=== PATIENT | male | born 1950 | race Caucasian/White ===

== ENCOUNTER 2020-09-22 05:17 | Day surgery (SDC) | payer MEDICARE, OTHER ==
[2020-09-17 11:36] LABS: BASOPHILS % (AUTO) 0.6 % (0-1); EOSINOPHILS # (AUTO) 0.1 X10'3 (0-0.9); EOSINOPHILS % (AUTO) 2.5 % (0-6); LYMPHOCYTES # (AUTO) 1.9 X10'3 (1.1-4.8); LYMPHOCYTES % (AUTO) 32.2 % (21-51); MEAN CORPUSCULAR HEMOGLOBIN 32.1 PG (27.0-31.0); MEAN CORPUSCULAR HGB CONC 34.1 g/dL (33.0-36.5); MEAN CORPUSCULAR VOLUME 94.4 FL (78-98); MEAN PLATELET VOLUME 9.3 FL (7.4-10.4); MONOCYTES # (AUTO) 0.5 X10'3 (0-0.9); MONOCYTES % (AUTO) 8.1 % (2-12); NEUTROPHILS # (AUTO) 3.3 X10'3 (1.8-7.7); NEUTROPHILS % (AUTO) 56.6 % (42-75); PRE OP HEMATOCRIT 44.8 % (42.0-52.0); PRE OP HEMOGLOBIN 15.3 g/dL (14.0-17.9); PRE OP PLATELET COUNT 221 X10'3 (140-440); RED BLOOD COUNT 4.75 X10'6 (4.70-6.10); RED CELL DISTRIBUTION WIDTH 13.4 % (11.5-14.5)
[2020-09-17 11:52] LABS: ALBUMIN 3.7 G/DL (3.4-5.0); ALBUMIN/GLOBULIN RATIO 1.2 (1.1-1.5); ALKALINE PHOSPHATASE 71 IU/L (46-116); BLOOD UREA NITROGEN 20 MG/DL (7-18); BUN/CREATININE RATIO 22.2 (5.4-32.0); CALCIUM 8.4 MG/DL (8.5-10.1); CHLORIDE 105 MMOL/L (99-107); PRE OP ALT 42 U/L (30-65); PRE OP ANION GAP 10 (8-16); PRE OP AST 22 U/L (10-37); PRE OP BILIRUB, TOTAL 1.6 MG/DL (0.0-1.0); PRE OP GLUCOSE 93 MG/DL (70-104); PRE OP SODIUM 142 MMOL/L (135-145); TOTAL CARBON DIOXIDE 27.1 MMOL/L (24-32); TOTAL PROTEIN 6.8 G/DL (6.4-8.2); eGFR 84 ML/MIN
[~2020-09-22] VITALS: Ht 170.2 cm; Wt 89.5 kg
[2020-09-22] VITALS (32 sets, daily range): BP systolic 93–141; BP diastolic 54–85
[~2020-09-22 05:17] MED LIST: ATOR-2 PO; DULO30CA52 PO; METO-395 PO; RAMI2.5C54 PO; ringers solution, lacted 1,000 ML IV SCH
[2020-09-22] MEDS ORDERED: famotidine 20mg tablet PO ONE (05:30)
[2020-09-22] MEDS ORDERED: gabapentin 300mg capsule PO ONE (05:30)
[2020-09-22] MEDS ORDERED: metoclopramide 5 mg/ml inj IV ONE (05:30)
[2020-09-22] MEDS ORDERED: oxyCODONE SR 10mg (sust. release) tab -2 tabs (20mg) PO ONE (05:30)
[2020-09-22] MEDS ORDERED: acetaminophen 325mg tablet PO ONE (05:30)
[2020-09-22] MEDS ORDERED: tranexamic acid inj. 1,000 MG in normal saline 100 ML IV ONE (05:30)
[2020-09-22] MEDS ORDERED: celeCOXIB 100mg capsule PO ONE (05:30)
[2020-09-22] MEDS ORDERED: vancomycin 1,500 MG in NS 300ml IV soln IV ONE (05:30)
[2020-09-22] MEDS ORDERED: DOCUMENT DATE & TIME OF BETA-BLOCKER PO ONE (05:30)
[2020-09-22] MEDS ORDERED: cefazolin/dext.iso 2gm/100ml IV ONE (05:30)
[2020-09-22] MEDS ORDERED: acetaminophen 325mg tablet PO PRN (06:40)
[2020-09-22] MEDS ORDERED: HYDROmorphone inj. 0.5 MG/0.5 ML DISP.SYRIN IV PRN (06:40)
[2020-09-22] MEDS ORDERED: HYDROcodone/acetaminophen 10/325mg tab PO PRN (06:40)
[2020-09-22] MEDS ORDERED: magnesium hydroxide 30ml (MOM) UD suspension PO PRN (06:40)
[2020-09-22] MEDS ORDERED: bisacodyl 10mg suppository rectal RC PRN (06:40)
[2020-09-22] MEDS ORDERED: diphenhydrAMINE 25mg capsule PO PRN ×2 (06:40)
[2020-09-22] MEDS ORDERED: ondansetron/PF 4mg/2ml inj IV PRN ×2 (06:40→07:50)
[2020-09-22] MEDS ORDERED: HYDROmorphone 1 mg/ml syringe IV PRN (06:40)
[2020-09-22] MEDS ORDERED: vancomycin 1,000mg inj ONE (06:44)
[2020-09-22] MEDS ORDERED: ketorolac trometh. 30mg/ml inj. ONE (06:44)
[2020-09-22] MEDS ORDERED: ROPIVAcaine 0.5% (5mg/ml) 30ml vial ONE (06:44)
[2020-09-22] MEDS ORDERED: cloNIDine hcl/PF 100mcg/ml inj ONE (06:44)
[2020-09-22] MEDS ORDERED: epiNEPHrine 1 mg/ml inj ONE (06:44)
[2020-09-22] MEDS ORDERED: MIDAZolam 1mg/ml 10ml vial ONE (07:02)
[2020-09-22] MEDS ORDERED: fentaNYL/PF 50MCG/1 ML 2ML syringe ONE (07:03)
[2020-09-22] MEDS ORDERED: morphine 4 MG/ML inj SYRINge IV PRN (07:50)
[2020-09-22] MEDS ORDERED: hydrALAZINE 20mg/ml inj. IV PRN (07:50)
[2020-09-22] MEDS ORDERED: fentaNYL/PF 50MCG/1 ML 2ML syringe IV PRN ×2 (07:50)
[2020-09-22] MEDS ORDERED: morphine 2 MG/ML inj. syringe IV PRN (07:50)
[2020-09-22] MEDS ORDERED: labetalol 20mg/4ml (5mg/ml) syringe IV PRN (07:50)
[2020-09-22] MEDS ORDERED: ringers solution, lacted 1,000 ML IV SCH (07:50)
[2020-09-22] MEDS: gabapentin 300mg capsule PO SCH ×3 (08:00→20:14)
[2020-09-22] MEDS ORDERED: lisinopril 5mg tablet PO SCH (08:00)
[2020-09-22] MEDS: multivitamins, therapeutics tablet PO SCH (08:00)
[2020-09-22] MEDS: ascorbic acid 500mg tablet PO SCH ×2 (08:00→20:10)
--- NOTE | 2020-09-22 08:29 | NUR ---
Received from OR via , accompanied by Anesthesiologist DR CODY and report given by Anesthesiolgist. PT PRESENTS WITH 18G RIGHT HAND, DRESSING ON LEFT THIGH DRY AND INTACT, VSS. Addendum: 09/22/20 at 0841 by Marie Okeefe RN, RN Amended: Links added.
[2020-09-22] MEDS: aspirin 325mg tablet PO SCH (08:30)
--- NOTE | 2020-09-22 11:18 | NUR ---
Patient in room . I have received report from Marie BUSTAMANTE and had the opportunity to ask questions and assume patient care.
--- NOTE | 2020-09-22 11:29 | NUR ---
PATIENT HAS MET ALL CRITERIA FOR TRANSFER TO THE ORTHO FLOOR ROOM 4024B LIZANDRO BUSTAMANTE. VSS. DRESSINGS INTACT. BED LOW, CALL LIGHT PRESENT AND 2 RAILS UP. RN PRESENT TO ACCEPT CARE OF PATIENT AND REPORT HAS BEEN CALLED. ALL QUESTIONS ANSWERED TO ACCEPTING RN. Addendum: 09/22/20 at 1132 by Marie Sainz - ROBBY RN Amended: Links added.
--- NOTE | 2020-09-22 12:44 | NUR ---
Patient in room ORTHO 4024. I have received report from MARI BUSTAMANTE and had the opportunity to ask questions and assume patient care.
[2020-09-22] MEDS: atorvastatin 20mg tablet PO SCH (12:45)
[2020-09-22] MEDS: duloxetine 30mg CAPSULE.DR PO SCH (12:45)
[2020-09-22] MEDS: metoprolol succinate 25mg (24-HOUR) SR. Tablet PO SCH (12:46)
[2020-09-22] MEDS: lisinopril 5mg tablet PO SCH (12:46)
[2020-09-22] MEDS: HYDROcodone/acetaminophen 10/325mg tab PO PRN (12:46)
[2020-09-22] MEDS ORDERED: tranexamic acid 1gm/0.7% sal. 100 ML IV ONE (14:00)
--- NOTE | 2020-09-22 14:37 | NUR ---
Problems reprioritized. Patient report given, questions answered & plan of care reviewed with LEYDA BUSTAMANTE.
[2020-09-22] MEDS: potassium cl 20mEq in 1/2 NS 1,000 ML IV SCH ×2 (14:40→16:06)
--- NOTE | 2020-09-22 15:00 | NUR ---
Received patient report patient sleeping with at bedside. Agree with Belén grain sampler patients left hip dressing CDI no leaks JUN dressing CDI
[2020-09-22] MEDS: cefazolin/dext.iso 2gm/100ml 100 ML IV SCH (16:06)
--- NOTE | 2020-09-22 18:15 | NUR ---
Problems reprioritized. Patient report given, questions answered & plan of care reviewed with Suki BUSTAMANTE.
[2020-09-22] MEDS ORDERED: sennosides 8.6mg tablet PO SCH (21:00)
[2020-09-23] MEDS: cefazolin/dext.iso 2gm/100ml 100 ML IV SCH (00:35)
[2020-09-23] MEDS: potassium cl 20mEq in 1/2 NS 1,000 ML IV SCH ×2 (00:40→06:40)
[2020-09-23 02:00] VITALS: BP 102/57
[2020-09-23] MEDS: HYDROcodone/acetaminophen 10/325mg tab PO PRN (05:21)
[2020-09-23 05:53] LABS: ANION GAP 7 (8-16); CHLORIDE 107 MMOL/L (99-107); POTASSIUM 4.5 MMOL/L (3.5-5.1); SODIUM 141 MMOL/L (135-145); TOTAL CARBON DIOXIDE 27.4 MMOL/L (24-32)
[2020-09-23 06:00] VITALS: BP 101/55
[2020-09-23 06:22] LABS: BASOPHILS % (AUTO) 0.5 % (0-1); EOSINOPHILS # (AUTO) 0.2 X10'3 (0-0.9); EOSINOPHILS % (AUTO) 3.7 % (0-6); HEMATOCRIT 37.2 % (42.0-52.0); HEMOGLOBIN 12.6 g/dl (14.0-17.9); LYMPHOCYTES # (AUTO) 1.3 X10'3 (1.1-4.8); LYMPHOCYTES % (AUTO) 23.2 % (21-51); MEAN CORPUSCULAR HEMOGLOBIN 32.6 PG (27.0-31.0); MEAN CORPUSCULAR HGB CONC 33.9 g/dL (33.0-36.5); MEAN CORPUSCULAR VOLUME 96.3 FL (78-98); MEAN PLATELET VOLUME 9.6 FL (7.4-10.4); MONOCYTES # (AUTO) 0.5 X10'3 (0-0.9); MONOCYTES % (AUTO) 9.4 % (2-12); NEUTROPHILS # (AUTO) 3.5 X10'3 (1.8-7.7); NEUTROPHILS % (AUTO) 63.2 % (42-75); PLATELET COUNT 172 X10'3 (140-440); RED BLOOD COUNT 3.86 X10'6 (4.70-6.10); RED CELL DISTRIBUTION WIDTH 13.3 % (11.5-14.5); WHITE BLOOD COUNT 5.6 X10'3 (4.5-11.0)
--- NOTE | 2020-09-23 06:36 | NUR ---
Problems reprioritized. Patient report given, questions answered & plan of care reviewed with ROBBY HERNANDEZ.
--- NOTE | 2020-09-23 06:36 | NUR ---
Patient in room ORTHO 4024. I have received report from Alpa mcqueen and had the opportunity to ask questions and assume patient care.
--- NOTE | 2020-09-23 06:40 | NUR ---
Patient in room ORTHO 4024. I have received report from Alpa mcqueen and had the opportunity to ask questions and assume patient care.
[2020-09-23] MEDS: metoprolol succinate 25mg (24-HOUR) SR. Tablet PO SCH (07:02)
[2020-09-23] MEDS: atorvastatin 20mg tablet PO SCH (07:02)
[2020-09-23] MEDS: duloxetine 30mg CAPSULE.DR PO SCH (07:02)
[2020-09-23] MEDS: gabapentin 300mg capsule PO SCH (07:03)
[2020-09-23] MEDS: multivitamins, therapeutics tablet PO SCH (07:03)
[2020-09-23] MEDS: ascorbic acid 500mg tablet PO SCH (07:04)
[2020-09-23] MEDS: lisinopril 5mg tablet PO SCH (07:05)
[2020-09-23] MEDS: aspirin 325mg tablet PO SCH (07:38)
[2020-09-23 09:52] VITALS: BP 101/61
--- NOTE | 2020-09-23 10:57 | NUR ---
Pt discharged [facility] at 1050. Pt belongings sent with patient. Iv removed, tip intact, no complications. All questions reviewed/answered. Pt discharged in stable condition alongside in private vehicle.
[2020-09-23] MEDS ORDERED: celeCOXIB 100mg capsule PO SCH (20:00)
== END 2020-09-23 10:50 | disposition home or self-care (01) ==
LOC: SSTAY O 05:17 → ORTHO 4S 06:37 → PAS 09-23 10:50
PROVIDERS: ATTEND Orthopaedic Surgery
DX: M16.12 Unilateral primary osteoarthritis, left hip (principal); M76.892 Other specified enthesopathies of left lower limb, excluding foot; M89.8X8 Other specified disorders of bone, other site; F41.9 Anxiety disorder, unspecified; I25.2 Old myocardial infarction; G47.30 Sleep apnea, unspecified; I25.10 Atherosclerotic heart disease of native coronary artery without angina pectoris; E66.9 Obesity, unspecified; Z68.32 Body mass index [BMI] 32.0-32.9, adult; Z87.442 Personal history of urinary calculi; Z20.822 Contact with and (suspected) exposure to COVID-19; Z87.891 Personal history of nicotine dependence; Z79.899 Other long term (current) drug therapy; Z79.82 Long term (current) use of aspirin; Z95.5 Presence of coronary angioplasty implant and graft; Z90.49 Acquired absence of other specified parts of digestive tract; Z98.890 Other specified postprocedural states; Z82.49 Family history of ischemic heart disease and other diseases of the circulatory system
CPT/HCPCS: 27130; 36415; 71046; 72170; 80051; 80053; 82948; 85025; 86885; 86900; 86901; 87081; 97110; 97116; 97161; 97530; C1776; J0171; J0735; J1170; J1885; J2250; J2270; J3010; J3370; J7040; J7120; Q0163; U0003; U0005; Z7506; Z7508; Z7512; A4215; A7000; G0378; J2795; J3480